=== PATIENT | female | born 1980 | race Caucasian/White ===

== ENCOUNTER 2025-05-01 07:46 | Outpatient (CLI) | payer OTHER, SELFPAY ==
--- NOTE | ~2025-05-01 | MR_ITS ---
MRI of the cervical spine Clinical History: Radiculopathy Technique: Axial T2-weighted and gradient images, and sagittal T1-weighted, T2-weighted, and STIR brenna ges were acquired. Findings: No fracture or subluxation seen. There is mild reversal normal cervical lordosis. No bone m arrow signal abnormality seen. At C2-C3 and C3-C4 and C4-C5, there is no significant disc bulge or herniation. No spinal canal steno sis, cord compression, or neural foraminal narrowing at these levels. At C5-C6, there is a large disc osteophyte complex predominantly at the left paracentral to left fora bere region, with compression of the ventral spinal cord, especially on the left side. There is left neural foraminal narrowing. Right neural foramen preserved. At C6-C7, there is mild disc osteophyte complex at the left paracentral region. No bharath canal stenos is, cord compression, or neural foraminal narrowing. No abnormal signal seen in the spinal cord. Paravertebral soft tissues are unremarkable. Impression: Advanced degenerative spondylosis C5-C6, with large left paracentral to left foraminal disc osteophyt e complex which compresses the spinal cord and narrows the left neural foramen at this level. Reviewed, dictated and finalized at [facility]. Impression: Advanced degenerative spondylosis C5-C6, with large left paracentral to left fo raminal disc osteophyte complex which compresses the spinal cord and narrows th e left neural foramen at this level.
== END 2025-05-01 07:47 | disposition home or self-care (01) ==
PROVIDERS: PCP Family Medicine; Visit Provider Nurse Practitioner Family
DX: M47.812 Spondylosis without myelopathy or radiculopathy, cervical region (principal); M25.712 Osteophyte, left shoulder; G95.29 Other cord compression; M48.02 Spinal stenosis, cervical region
CPT/HCPCS: 72141